=== PATIENT | male | born 1945 | race Caucasian/White ===

== ENCOUNTER 2023-10-05 13:15 | Emergency (ER) | payer OTHER, MEDICARE, SELFPAY ==
[2023-10-05] VITALS (7 sets, daily range): BP systolic 112–130; BP diastolic 65–84; PULSE 73–76; RESP 16–22; TEMP 36.5; O2SAT 85–97; BMI 33.7
--- NOTE | 2023-10-05 13:31 | ECG_ITS ---
[facility] Test Date: 2023-10-05 Pat Name: Jaec Allen Department: Room: Gender: Male Fur Trapper: : 1945 Requested By: Angel Pena Order Number: [id number] Petra MD: Miguel Ángel Doan M.D. Measurements Intervals [place] Rate: 79 P: 91 [place]: 189 QRS: 3 QRSD: 96 T: 67 QT: 336 QTc: 386 Interpretive Statements SINUS RHYTHM No previous ECG available for comparison Electronically Signed On 10-06-2023 9:10:44 CDT by Miguel Ángel Doan M.D. [email or web address].[employer]/store/[id number]
--- NOTE | 2023-10-05 14:11 | ECG_ITS ---
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 Measurements Intervals [place] Rate: 72 P: 92 [place]: 187 QRS: 5 QRSD: 87 T: 53 QT: 339 QTc: 372 Interpretive Statements SINUS RHYTHM WITH OCCASIONAL VENTRICULAR PREMATURE COMPLEXES Compared to ECG 10/05/2023 13:31:04 Ventricular premature complex(es) now present Electronically Signed On 10-06-2023 9:10:41 CDT by Miguel Ángel Doan M.D. [email or web address]/store/OM/[id number]
[2023-10-05 14:13] LABS: Basophils % 0.7 %; Eosinophils # 0.1 10^3/uL (0.0-0.8); Eosinophils % 1.7 %; Hematocrit 38.1 % (37-53); Lymphocytes # 1.4 10^3/uL (0.8-4.8); Lymphocytes % 23.8 %; Mean Corpuscular HGB Conc 34.1 g/dL (30-55); Mean Corpuscular Hemoglobin 34.8 pg (27-33); Mean Corpuscular Volume 101.9 fl (82-101); Monocytes # 0.6 10^3/uL (0.2-0.9); Monocytes % 9.8 %; Neutrophils # 3.85 10^3/uL (1.8-7.7); Neutrophils % 63.7 %; Nucleated Red Blood Cells % 0 %; Platelet Count 249 10^3/cmm (157-399); Red Blood Count 3.74 10^6/uL (3.85-5.65); Red Cell Distribution Width 13.3 % (12.1-15.1); White Blood Count 6.04 10^3/uL (3.29-11.43)
--- NOTE | 2023-10-05 14:23 | XRR_ITS ---
PROCEDURE INFORMATION: Exam: XR Chest Exam date and time: 10/05/2023 2:48 PM Age: 78 years old Clinical indication: Patient HX: SOB; Dyspnea; Fall; Copd; Smoker x 60+yrs TECHNIQUE: Imaging protocol: Radiologic exam of the chest. Views: 1 view. COMPARISON: No relevant prior studies available. FINDINGS: Lungs: Mild basilar linear atelectasis versus scarring. No consolidation. Pleural spaces: Unremarkable. No pleural effusion. No pneumothorax. Heart/Mediastinum: Unremarkable. No cardiomegaly. Bones/joints: Degenerative changes along the spine and shoulders. XR/XR chest 1V portable [id number] IMPRESSION: No acute findings.
--- NOTE | 2023-10-05 14:23 | W.ED.SOB ---
HPI - SOB/Dyspnea General: Chief Complaint: Shortness of Breath/Dyspnea Stated Complaint: sob, fall Time Seen by Provider: 10/05/23 13:52 History of Present Illness: HPI Narrative: 78-year-old male presents to the emergency room with complaints of shortness of breath. He does not have any chest pain. With activity patient notes worsening shortness of breath. He is a former smoker. He has a history of sleep apnea he does use CPAP with some supplemental oxygen at night. He has oxygen continuously. He does have DuoNebs at home but he has not been using the last few days. He denies any abdominal pain. No fever sweats or chills he does have a baseline productive cough of clear to white mucus that is remains unchanged. Associated symptoms: Deny abdominal pain, chest pain or fever(s) Related Data Previous Rx's Medication Instructions Recorded ipratropium 0.5 mg-albuterol 3 mg 3 ml inhalation Q4H PRN shortness 10/05/23 (2.5 mg base)/3 mL nebulization of breath or wheezing #90 mL soln prednisone 20 mg tablet 20 mg PO TID #15 tabs 10/05/23 Allergies Allergy/AdvReac Type Severity Reaction Status Date / Time hydromorphone [From Dilaudid] Allergy Unconscious Verified 10/05/23 13:32 Review of Systems Const: Denies: fever(s) or chills Card: Denies: chest pain Resp: Reports: dyspnea and wheezing GI: Denies: abdominal pain : Denies: dysuria, urinary frequency or urinary urgency Musc: Denies: neck pain or back pain Skin/Breast: Denies: rash Physical Exam Const: GENERAL APPEARANCE: cooperative ORIENTATION/CONSCIOUSNESS: Yes awake, Yes oriented to person, Yes oriented to place and Yes oriented to time HENMT: COMMON NORMALS: normocephalic, atraumatic and hearing grossly normal bilaterally HEAD & SCALP: normocephalic and atraumatic Resp: COMMON NORMALS: normal respiratory effort, No retractions and No use of accessory muscles AUSCULTATION: wheezes Cardio: COMMON NORMALS: regular rate, regular rhythm and No murmurs present (Cardio) RATE: regular rate RHYTHM: regular rhythm GI: COMMON NORMALS: Soft to palpation and No hepatosplenomegaly present AUSCULTATION: Yes normoactive bowel sounds PALPATION: Yes Soft to palpation, No Tenderness to palpation present (GI), No Guarding due to palpation present (GI) and Yes No hepatosplenomegaly present Extremity: COMMON NORMALS: normal to inspection, capillary refill normal, no clubbing, cyanosis or edema, no calf tenderness and no pedal edema Neuro: SENSORIUM/ORIENTATION: Yes oriented to person, Yes oriented to place and Yes oriented to time Skin: COMMON NORMALS: no rashes or lesions noted GENERAL SKIN EXAM: no rashes or lesions noted Course Vital Signs: Vital signs: Vital Signs Temperature 97.7 F 10/05/23 13:28 Pulse Rate 75 10/05/23 19:00 Respiratory Rate 18 10/05/23 19:00 Blood Pressure 130/84 10/05/23 19:00 Pulse Oximetry 94 10/05/23 19:00 Oxygen Delivery Me thod Room Air 10/05/23 16:12 Oxygen Flow Rate 3 10/05/23 17:32 MDM - SOB/Dyspnea Medical Decision Making Labs and imaging reviewed EKG did not show any acute changes troponin trending normal. Blood gas is well-adjusted show some chronic hypercapnia and a resting pCO2 of 60. Patient was ambulated she does not he does qualify for 3 L/min. Given his oxygen need the severity of his symptoms and reported syncopal episodes recommend hospitalization for further evaluation treatment of his exacerbation of COPD. Patient declines this. Despite prolonged conversation encouraging him and his family also assisting and encouraging him to stay he still wishes to go home. Return to make arrangements for oxygen [place] will [place] an extended period of time to get because of that time of day and day of the week. (Saturday evening). Patient prefers to go home. We did discharge him home we will put him on a prednisone taper encourage aggressive use of nebulizer and follow-up with his primary care doctor soon as able this coming week if he changes mind any point encourage him to return he can be reevaluated and admitted. Medical Records I reviewed the patient's medical records. Lab Data I reviewed the patient's lab results. 10/05/23 14:08 10/05/23 14:08 Labs/Radiology: Radiology Impressions Chest X-Ray 10/05/23 14:23 IMPRESSION: No acute findings. Laboratory Results WBC 6.04 10^3/uL (3.29-11.43) 10/05/23 14:08 RBC 3.74 10^6/uL (3.85-5.65) L 10/05/23 14:08 Hgb 13.00 g/dL (11.27-16.99) 10/05/23 14:08 Hct 38.1 % (37-53) 10/05/23 14:08 MCV 101.9 fl (82-101) H 10/05/23 14:08 MCH 34.8 pg (27-33) H 10/05/23 14:08 MCHC 34.1 g/dL (30-55) 10/05/23 14:08 RDW 13.3 % (12.1-15.1) 10/05/23 14:08 Plt Count 249 10^3/cmm (157-399) 10/05/23 14:08 MPV 9.0 fL (7.4-10.4) 10/05/23 14:08 Neut % (Auto) 63.7 % 10/05/23 14:08 Lymph % (Auto) 23.8 % 10/05/23 14:08 Garrard % (Auto) 9.8 % 10/05/23 14:08 Eos % (Auto) 1.7 % 10/05/23 14:08 Baso % (Auto) 0.7 % 10/05/23 14:08 Neut # (Auto) 3.85 10^3/uL (1.8-7.7) 10/05/23 14:08 Lymph # (Auto) 1.4 10^3/uL (0.8-4.8) 10/05/23 14:08 Garrard # (Auto) 0.6 10^3/uL (0.2-0.9) 10/05/23 14:08 Eos # (Auto) 0.1 10^3/uL (0.0-0.8) 10/05/23 14:08 Baso # (Auto) 0.0 10^3/uL (0.0-0.1) 10/05/23 14:08 Nucleated RBC % (auto) 0 % 10/05/23 14:08 Nucleated RBCs # 0.0 /100WBC 10/05/23 14:08 Specimen Type Arterial 10/05/23 16:50 Sample Site Radial, right 10/05/23 16:50 ABG pH 7.38 (7.35-7.45) 10/05/23 16:50 ABG pCO2 45.4 mmHg (35-45) H 10/05/23 16:50 ABG pO2 60.0 mmHg (80.0-100.0) L 10/05/23 16:50 ABG PO2/FiO2 Ratio 285 10/05/23 16:50 ABG HCO3 26.6 mmol/L (22-26) H 10/05/23 16:50 ABG O2 Saturation 91.3 10/05/23 16:50 ABG Base Excess 1.0 mmol/L (-2.0-2.0) 10/05/23 16:50 Aureliano Test Pos 10/05/23 16:50 A-a O2 Gradient 4.5 mmHg (5-10) L 10/05/23 16:50 Hematocrit 39.2 % (42-52) L 10/05/23 16:50 Hgb O2 Saturation 88.1 % (95-100) L 10/05/23 16:50 Carboxyhemoglobin 2.5 %THgb (0.4-20.1) 10/05/23 16:50 Methemoglobin 1.0 % (0.4-1.5) 10/05/23 16:50 Total Hemoglobin 12.8 g/dL (14-18) L 10/05/23 16:50 Sodium 135.0 mmol/L (131-143) 10/05/23 16:50 Potassium 4.4 mmol/L (3.5-5.0) 10/05/23 16:50 Glucose 120.0 mg/dL (70-115) H 10/05/23 16:50 Ionized Calcium 1.3 mmol/L (1.1-1.4) 10/05/23 16:50 O2 Delivery Device Room air 10/05/23 16:50 FiO2 21.0 % 10/05/23 16:50 Head Men'S Tennis Coach ID Broma 10/05/23 16:50 Sodium 138 mmol/L (136-145) 10/05/23 14:08 Potassium 5.2 mmol/L (3.5-5.1) H 10/05/23 14:08 Chloride 99 mmol/L (98-107) 10/05/23 14:08 Carbon Dioxide 25 mmol/L (22-29) 10/05/23 14:08 Anion Gap 19.2 (5-19) H 10/05/23 14:08 BUN 25 mg/dL (8-23) H 10/05/23 14:08 Creatinine 1.1 mg/dL (0.7-1.2) 10/05/23 14:08 GFR Calculation Not Reportable 10/05/23 14:08 Glucose 122 mg/dL (65-115) H 10/05/23 14:08 Calculated Osmolality 292 mOsm/kg (285-295) 10/05/23 14:08 Calcium 9.4 mg/dL (8.5-10.5) 10/05/23 14:08 Total Bilirubin 0.7 mg/dL (0.15-1.2) 10/05/23 14:08 AST 28 U/L (0-40) 10/05/23 14:08 ALT 29 U/L (0-41) 10/05/23 14:08 Alkaline Phosphatase 84 U/L (40-130) 10/05/23 14:08 Creatine Kinase 173 U/L (39-308) 10/05/23 14:08 Troponin T Baseline 27 ng/L (0-15) H 10/05/23 14:08 Troponin T 120 Minute 21.83 ng/L (0-15) H 10/05/23 16:37 Delta Troponin T -5.17 ABS# (0-10) L 10/05/23 16:37 NT-Pro-B Natriuret Pep 101 pg/mL (0-450) 10/05/23 14:08 Total Protein 7.9 g/dL (6.6-8.7) 10/05/23 14:08 Albumin 4.3 g/dL (3.5-5.2) 10/05/23 14:08 Globulin 3.6 g/dL (1.3-4.6) 10/05/23 14:08 Urine Color Yellow (Yellow) 10/05/23 14:27 Urine Appearance Clear (CLEAR) 10/05/23 14:27 Urine pH 6.5 (5-7) 10/05/23 14:27 Ur Specific [place] 1.013 (1.005-1.030) 10/05/23 14:27 Urine Protein Negative (Negative) 10/05/23 14:27 Urine Glucose (UA) Negative (Normal) 10/05/23 14:27 Urine Ketones Negative (Negative) 10/05/23 14:27 Urine Blood Negative (Negative) 10/05/23 14:27 Urine Nitrate Negative (Negative) 10/05/23 14:27 Urine Bilirubin Negative (Negative) 10/05/23 14:27 Urine Urobilinogen 1.0 mg/dL (Negative) 10/05/23 14:27 Ur Leukocyte Esterase Trace (Negative) A 10/05/23 14:27 Urine RBC 0-2 /hpf (0-2) 10/05/23 14:27 Urine WBC 0-5 /hpf (0-5) 10/05/23 14:27 Ur Squamous Epith Cells 0-5 /hpf (0-5) 10/05/23 14:27 Amorphous Sediment Not Reportable 10/05/23 14:27 Urine Bacteria None seen /hpf (NONE) 10/05/23 14:27 Hyaline Casts 0.40 /lpf 10/05/23 14:27 All radiology interpretation(s) finalized by discharge Discharge Plan Discharge Patient Disposition: Home Clinical Impression: Acute exacerbation of chronic obstructive airways disease, Syncope Condition: Stable Prescriptions: New ipratropium-albuterol 0.5 mg-3 mg(2.5 mg base)/3 mL solution for nebulization 3 ml inhalation Q4H PRN (Reason: shortness of breath or wheezing) Qty: 90 0RF prednisone 20 mg tablet 20 mg PO TID Qty: 15 0RF Rx Instructions: 1 p.o. 3 times daily x3 days, 1 p.o. twice daily x2 days, 1 p.o. daily x2 days Discharge Orders: Discharge ED (Routine); Ordered 10/05/23 Ordered By: Angel Arevalo Referrals: Randy Domingo MD [Primary Care Provider] - Patient Instructions: Opioid Safety, Pain Management Activity Restrictions/Additional Instructions: Thank you for choosing [facility] for your healthcare needs today. It is very important that you follow up as instructed or that you return to the Emergency Department should you have concerns or if your condition changes or worsens in any way. You were seen today for shortness of breath. Does not appear your heart failure does appear you have exacerbation of your COPD. You qualified for 3 L of oxygen by nasal cannula. You have declined admission we did give you a prescription for steroids as well as ipratropium albuterol nebulizers. You should use the albuterol ipratropium nebulizers regularly while awake to alleviate your shortness of breath. It is likely that with almost any activity you will notice significant shortness of breath given the testing we noted today. You should follow-up with your primary care clinic as soon as you are able to be prescribed oxygen. If your symptoms worsen or if you change your mind concerning hospital admission you were welcome to return at any point to be reevaluated. Coding Level of Care Code ED Biochemical Development Engineer for Zeeshan Vitale
[2023-10-05 14:35] LABS: Alanine Aminotransferase 29 U/L (0-41); Albumin Level 4.3 g/dL (3.5-5.2); Alkaline Phosphatase 84 U/L (40-130); Anion Gap 19.2 (5-19); Aspartate Amino Transferase 28 U/L (0-40); Blood Urea Nitrogen 25 mg/dL (8-23); Calcium 9.4 mg/dL (8.5-10.5); Carbon Dioxide 25 mmol/L (22-29); Chloride 99 mmol/L (98-107); Creatine Phosphokinase 173 U/L (39-308); Globulin 3.6 g/dL (1.3-4.6); Glucose 122 mg/dL (65-115); Osmolality Calculated 292 mOsm/kg (285-295); Potassium 5.2 mmol/L (3.5-5.1); Sodium 138 mmol/L (136-145); Total Bilirubin 0.7 mg/dL (0.15-1.2); Total Protein 7.9 g/dL (6.6-8.7)
[2023-10-05 14:41] LABS: Charge for UA Resulting for Rev
[2023-10-05 14:49] LABS: Bilirubin Urine Negative (Negative); Blood Urine Negative (Negative); Glucose Urine UA Negative (Normal); Ketones Urine Negative (Negative); Leukocyte Esterase Urine Trace (Negative); Nitrate Urine Negative (Negative); Protein Urine Negative (Negative); Specific Gravity, Urine 1.013 (1.005-1.030); Urine Appearance Clear (CLEAR); Urine Color Yellow (Yellow); pH Urine 6.5 (5-7)
[2023-10-05 14:51] LABS: Bacteria Urine None Seen /hpf; RBC Urine 0-2 /hpf (0-2); Squamous Epithelial Cell Urine 0-5 /hpf (0-5); WBC Urine 0-5 /hpf (0-5)
[2023-10-05 15:04] LABS: NT Pro B Type Natriuretic Pept 101 pg/mL (0-450)
[2023-10-05 15:45] LABS: Troponin(5th) Baseline 27 ng/L (0-15)
[2023-10-05] MEDS: methylPREDNISolone sod succ 125 mg/2 mL INJ IVP (15:45)
[2023-10-05] MEDS: ipratropium-albuterol 3 mL Neb INHALATION (16:09)
[2023-10-05 16:59] LABS: Troponin 5 2HR 21.83 ng/L (0-15)
[2023-10-05 17:00] LABS: Troponin 5 2HR Delta -5.17 ABS# (0-10)
[2023-10-05 17:00] LABS: ABG PCO2 45.4 mmHg (35-45); ABG PH Result 7.38 (7.35-7.45); Alveolar-Arterial Oxygen Gradi 4.5 mmHg (5-10); Arterial Blood Gas Hematocrit 39.2 % (42-52); Blood Gas Allen Test Pos; Blood Gas Operator Identificat BROMA; Blood Gas Sample Site Radial, right; Blood Gas Sample Type Arterial; Carboxyhemoglobin 2.5 %THgb (0.4-20.1); HCO3 ABG 26.6 mmol/L (22-26); HGB O2 Sat 88.1 % (95-100); Ionized Calcium Level - ABG 1.3 mmol/L (1.1-1.4); Oxygen Device ROOM AIR; Oxygen Saturation ABG 91.3; PO2 FiO2 Ratio Arterial Blood 285; Potassium Level - ABG 4.4 mmol/L (3.5-5.0); Total Hemoglobin 12.8 g/dL (14-18)
--- NOTE | 2023-10-05 17:25 | ECG_ITS ---
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 Measurements Intervals [place] Rate: 67 P: 0 [place]: 0 QRS: -11 QRSD: 94 T: 46 QT: 348 QTc: 370 Interpretive Statements SUPRAVENTRICULAR RHYTHM INCOMPLETE RIGHT BUNDLE BRANCH BLOCK [90+ ms QRS DURATION, TERMINAL R IN V1/V2, 40+ ms S IN I/aVL/V4/V5/V6] POSSIBLE SEPTAL MYOCARDIAL INFARCTION , OF INDETERMINATE AGE [30 ms Q WAVE IN V1/V2] Compared to ECG 10/05/2023 14:22:01 Supraventricular rhythm now present Incomplete right bundle-branch block now present Myocardial infarct finding now present Sinus rhythm no longer present Ventricular premature complex(es) no longer present Electronically Signed On 10-06-2023 9:13:13 CDT by Miguel Ángel Doan M.D. [id number]
== END 2023-10-05 19:49 | disposition home or self-care (01) ==
PROVIDERS: Emergency Provider Family Medicine
DX: J44.1 Chronic obstructive pulmonary disease with (acute) exacerbation (principal); R55 Syncope and collapse
CPT/HCPCS: 36415; 36600; 71045; 80051; 80053; 81003; 81015; 82330; 82550; 82805; 83880; 84484; 85025; 93005; 94640; 96374; 99285; J2919